=== PATIENT | female | born 1950 | race Caucasian/White ===

== ENCOUNTER 2017-09-03 08:47 | Day surgery (SDC) | payer OTHER ==
[~2017-09-03] VITALS: Ht 170.2 cm; Wt 81.7 kg
[~2017-09-03 08:47] MED LIST: ALBU.083IS; ALBU.083IS IH; ALBU90OI61 INH; BUTONI; CEPH500 PO; CYCL10 PO; FLUSAL2505; FLUSAL2505 IH; HEART BURN MED; HYDACE10B PO; HYDACE5 PO; INDERAL; LEVFLO500 PO; LEVSOD100; LEVSOD137 PO; LEVSOD150; LOVA20 PO; METCAR500 PO; MONT10T; MONT10T PO; NAPR550 PO; Norco 5-325 Ta1 EACH PO; OMEP20ER; OMEP20ER PO; OXYACE5T PO; PHENA200 PO; PRED20 PO; PRIM50 PO; PROP60; RANI150 PO; SULTRIDS PO; TESTOSTERONE CREAM
== END 2017-09-03 10:50 | disposition home or self-care (01) ==
LOC: ORSCSDS 08:47
PROVIDERS: Internal Medicine Gastroenterology
PROC: 0DBL8ZX Excision of Transverse Colon, Via Natural or Artificial Opening Endoscopic, Diagnostic (ICD-10-PCS; principal; 2017-09-03 10:15)
PROC: 0DBP8ZX Excision of Rectum, Via Natural or Artificial Opening Endoscopic, Diagnostic (ICD-10-PCS; principal; 2017-09-03 10:15)
PROC: 0DBM8ZX Excision of Descending Colon, Via Natural or Artificial Opening Endoscopic, Diagnostic (ICD-10-PCS; principal; 2017-09-03 10:15)
DX: Z12.11 Encounter for screening for malignant neoplasm of colon (principal); D12.3 Benign neoplasm of transverse colon; K63.5 Polyp of colon; K62.1 Rectal polyp; K64.4 Residual hemorrhoidal skin tags; K64.8 Other hemorrhoids; Z86.010 Personal history of colon polyps; J44.9 Chronic obstructive pulmonary disease, unspecified; G47.30 Sleep apnea, unspecified; I10 Essential (primary) hypertension; E03.9 Hypothyroidism, unspecified; E78.5 Hyperlipidemia, unspecified; I35.0 Nonrheumatic aortic (valve) stenosis; Z79.82 Long term (current) use of aspirin; F17.210 Nicotine dependence, cigarettes, uncomplicated; Z79.899 Other long term (current) drug therapy
CPT/HCPCS: 88305; J2250; J7120

== ENCOUNTER 2021-06-06 06:38 | Day surgery (SDC) | payer MEDICARE ==
[~2021-06-06] VITALS: Ht 172.7 cm; Wt 66.0 kg
[~2021-06-06 06:38] MED LIST changes: +ALEN70 PO; +ASPI325 PO; +CALCIUM CIT 311 EAC7 PO; +FAMO20 PO; -FLUSAL2505 IH; +FLUT1DIS5 INH; +LEVSOD150 PO; +Ranitidine HCl150 M1 PO; +Ventolin5 MG/1 ML INH; +Vitamin B Comple1 EA PO
--- NOTE | 2021-06-06 10:43 | NUR ---
1015 PATIENT UP TO THE RESTROOM, OFF THE MONITOR, ALLOWED TO DRESS. RESTING IN THE RECLINER.
--- NOTE | 2021-06-06 11:26 | NUR ---
TR BAND FLAT AT 1115 AND PIV REMOVED PER PATIENT REQUEST. CATH TIP INTACT AND PRESSURE DRESSING APPLIED.
--- NOTE | 2021-06-06 11:40 | NUR ---
TR BAND SITE CDI, NO HEMATOMA, NO BLEEDING, WHITE BOARD IN PLACE AND PATIENT UP WALKING IN THE HALLS. NO PAIN NOTED. RIDE WILL NOT ARRIVE UNTIL 2 PM. PATIENT COULD DISCAHRGE AT THIS POINT BUT WAITING ON RIDE. REVIEWED DISCHARGE INSTRUCTIONS WITH THE PATIENT. NO FURTHER QUESTIONS FROM THE PAITENT. TR BAND REMOVED AND SITE CLEANED. CLOTH DOT PLACED AND WHITE BOARF REPLACED TO REMIND PATIENT NOT TO BEND EXCESSIVELY OR PUSH /PULL WITH THAT RIGHT WRIST.
--- NOTE | 2021-06-06 12:10 | NUR ---
PATIENT IS WAITING IN THE [place] FOR HER DAUGHTER. DISCHARGED WITH INSTRUCTIONS. ALL HER BELONGINGS WITH HER.
== END 2021-06-06 12:00 | disposition home or self-care (01) ==
LOC: MHTC 06:38
DX: I35.0 Nonrheumatic aortic (valve) stenosis (principal); E78.5 Hyperlipidemia, unspecified; J44.9 Chronic obstructive pulmonary disease, unspecified; I25.10 Atherosclerotic heart disease of native coronary artery without angina pectoris; F17.210 Nicotine dependence, cigarettes, uncomplicated; I10 Essential (primary) hypertension; Z88.5 Allergy status to narcotic agent
CPT/HCPCS: 76937; 93454; 99152; 99153; C1769; C1894; J1644; J2250; J3010; J7030; Q9967

== ENCOUNTER 2021-08-05 06:40 | Day surgery (SDC) | payer OTHER ==
[~2021-08-05] VITALS: Ht 172.7 cm; Wt 71.5 kg
[2021-08-05] MEDS ORDERED: TRELEGY ELLIPT1 EACH INH (08:10)
[2021-08-05] MEDS ORDERED: Chantix1 MG PO (08:25)
[2021-08-05] MEDS ORDERED: PROZAC20 M2 PO (08:26)
--- NOTE | 2021-08-05 08:30 | NUR ---
History, Chart, Medications and Allergies reviewed before start of procedure. Patient confirms NPO status and agrees with scheduled surgery. Patient States Post-Procedure ride home has been arranged with her sister.
--- NOTE | 2021-08-05 10:34 | NUR ---
RECEIVED REPORT FROM OSEAS REDDY RN. PT SITTING UP IN BED, TOLERATING PO FLUIDS. ABLE TO REPOSITION SELF IN BED. VISITING WITH SISTER AT BEDSIDE, REQUESTING TO GO HOME. PT HAS TWO INCISION SITES, ONE ON RIGHT NECK AND ONE AT ACCESS PORT ON R CHEST. INCISION SITES ARE COVERED WITH GAUZE AND CLEAR TAPE. NO DRAINAGE, SWELLING, INFLAMMATION NOTED.
--- NOTE | 2021-08-05 10:57 | NUR ---
Patient up to Ambulate independently. Gait steady. Discharge instructions reviewed with patient. Patient verbalizes understanding. Copy given to patient to take home. Patient States Post-Procedure ride home has been arranged. Discharged via wheelchair to private car for ride home. Dressings to procedure site clean, dry, intact with no visible drainage, swelling, erythema or bruising noted. ALL BELONGINGS RETURNED TO PATIENT THAT SHE CAME TO STEP DOWN UNIT WITH.
--- NOTE | 2021-08-06 16:01 | NUR ---
08/06/21 1601 Alexia Colin VERIFICATIONS, AUDITS.
== END 2021-08-05 23:56 | disposition home or self-care (01) ==
LOC: ORSCMMR 06:40 → ORD 08:30 → ORSCMMR 08:30
PROVIDERS: Surgery
PROC: 05HM33Z Insertion of Infusion Device into Right Internal Jugular Vein, Percutaneous Approach (ICD-10-PCS; principal; 2021-08-05 08:30)
PROC: B543ZZA Ultrasonography of Right Jugular Veins, Guidance (ICD-10-PCS; principal; 2021-08-05 08:30)
DX: C34.12 Malignant neoplasm of upper lobe, left bronchus or lung (principal); I10 Essential (primary) hypertension; I25.2 Old myocardial infarction; G47.33 Obstructive sleep apnea (adult) (pediatric); J44.9 Chronic obstructive pulmonary disease, unspecified; F17.210 Nicotine dependence, cigarettes, uncomplicated; E03.9 Hypothyroidism, unspecified; E78.5 Hyperlipidemia, unspecified; K21.9 Gastro-esophageal reflux disease without esophagitis; F41.8 Other specified anxiety disorders; Z79.82 Long term (current) use of aspirin; Z79.899 Other long term (current) drug therapy
CPT/HCPCS: 77001; C1788; J0690; J1100; J1642; J2250; J2370; J2405; J2704; J3010; J7120

== ENCOUNTER → 2021-12-24 | Outpatient (CLI) | payer OTHER ==
[~2021-12-24] MED LIST changes: +Chantix1 MG PO; +PROZAC20 M2 PO; +TRELEGY ELLIPT1 EACH INH
== END | disposition home or self-care (01) ==
LOC: PLD 14:48 → LAB SHORT 14:48
DX: L30.8 Other specified dermatitis (principal)
CPT/HCPCS: 88305; 88312

== ENCOUNTER 2022-03-01 12:40 | Emergency (ER) | payer OTHER ==
[~2022-03-01] VITALS: Ht 172.7 cm; Wt 77.1 kg
[2022-03-01 13:33] LABS: BASOPHILS ABSOLUTE AUTO 0.06 K/mm3 (0.00-0.23); BASOPHILS PERCENT AUTO 1 % (0-2); EOSINOPHILS ABSOLUTE AUTO 0.18 K/mm3 (0.00-0.68); EOSINOPHILS PERCENT AUTO 2 % (0-6); Hematocrit 42.2 % (33.0-51.0); IMMATURE GRAN ABSOLUTE AUTO 0.02 K/mm3 (0.00-0.10); IMMATURE GRAN PERCENT AUTO 0 % (0-1); LYMPHOCYTES ABSOLUTE AUTO 2.49 K/mm3 (0.84-5.20); LYMPHOCYTES PERCENT AUTO 30 % (21-46); MONOCYTES ABSOLUTE AUTO 1.18 K/mm3 (0.16-1.47); MONOCYTES PERCENT AUTO 14 % (4-13); Mean Corpuscular HGB 28.9 pg (26.0-34.0); Mean Corpuscular HGB Conc 33.2 g/dL (31.5-36.5); Mean Corpuscular Volume 87 fL (80-100); Mean Platelet Volume 10.7 fL (9.1-12.4); NEUTROPHILS ABSOLUTE AUTO 4.48 K/mm3 (1.96-9.15); NEUTROPHILS PERCENT AUTO 53 % (41-73); Platelet Count 146 K/mm3 (150-400); RDW Coefficient Variation 13.9 % (11.7-14.2); RDW Standard Deviation 44.5 fL (35.1-46.3); Red Blood Cell Count 4.85 M/mm3 (3.80-5.20); White Blood Cell Count 8.41 K/mm3 (4.00-11.30)
[2022-03-01 13:40] LABS: Albumin, Blood 3.4 g/dL (3.4-5.0); Albumin/Globulin Ratio 0.9 (0.8-1.8); Bilirubin, Total 0.2 mg/dL (0.1-1.0); Bun/Creatinine Ratio 17.6 (12.0-20.0); Calcium, Blood 8.8 mg/dL (8.5-10.1); Creatinine, Blood 0.57 mg/dL (0.40-1.00); Globulin, Blood 3.9 g/dL (2.2-4.0); Total Protein, Blood 7.3 g/dL (6.4-8.2)
== END 2022-03-01 15:21 | disposition home or self-care (01) ==
LOC: ER 12:40
PROVIDERS: Student in an Organized Health Care Education/Training Program
DX: R60.0 Localized edema (principal); J44.9 Chronic obstructive pulmonary disease, unspecified; G43.909 Migraine, unspecified, not intractable, without status migrainosus; E03.9 Hypothyroidism, unspecified; F17.200 Nicotine dependence, unspecified, uncomplicated; Z79.899 Other long term (current) drug therapy; Z79.82 Long term (current) use of aspirin
CPT/HCPCS: 36415; 80053; 83880; 84484; 85025; 93005; 93010; 99283-25

== ENCOUNTER → 2022-05-25 | Outpatient (CLI) | payer OTHER ==
[2022-05-25 13:09] LABS: BASOPHILS ABSOLUTE AUTO 0.03 K/mm3 (0.00-0.23); BASOPHILS PERCENT AUTO 0 % (0-2); EOSINOPHILS ABSOLUTE AUTO 0.02 K/mm3 (0.00-0.68); EOSINOPHILS PERCENT AUTO 0 % (0-6); Hematocrit 36.2 % (33.0-51.0); Hemoglobin 12.3 g/dL (11.5-16.0); IMMATURE GRAN ABSOLUTE AUTO 0.05 K/mm3 (0.00-0.10); IMMATURE GRAN PERCENT AUTO 1 % (0-1); LYMPHOCYTES ABSOLUTE AUTO 2.62 K/mm3 (0.84-5.20); LYMPHOCYTES PERCENT AUTO 38 % (21-46); MONOCYTES ABSOLUTE AUTO 1.01 K/mm3 (0.16-1.47); MONOCYTES PERCENT AUTO 15 % (4-13); Mean Corpuscular HGB 30.1 pg (26.0-34.0); Mean Corpuscular Volume 89 fL (80-100); Mean Platelet Volume 10.4 fL (9.1-12.4); NEUTROPHILS ABSOLUTE AUTO 3.17 K/mm3 (1.96-9.15); NEUTROPHILS PERCENT AUTO 46 % (41-73); Platelet Count 323 K/mm3 (150-400); RDW Coefficient Variation 13.6 % (11.7-14.2); RDW Standard Deviation 42.6 fL (35.1-46.3); Red Blood Cell Count 4.09 M/mm3 (3.80-5.20)
[2022-05-25 13:26] LABS: Albumin, Blood 3.2 g/dL (3.4-5.0); Albumin/Globulin Ratio 0.8 (0.8-1.8); Bilirubin, Total 0.1 mg/dL (0.1-1.0); Calcium, Blood 8.5 mg/dL (8.5-10.1); Creatinine, Blood 0.5 mg/dL (0.40-1.00); Globulin, Blood 3.8 g/dL (2.2-4.0); Potassium, Blood 3.6 mmol/L (3.5-5.5)
== END | disposition home or self-care (01) ==
LOC: LAB SHORT 12:37 → LAB 12:37
PROVIDERS: Internal Medicine Hematology & Oncology
DX: C34.90 Malignant neoplasm of unspecified part of unspecified bronchus or lung (principal)
CPT/HCPCS: 80053; 85025

== ENCOUNTER → 2022-06-24 | Outpatient (CLI) | payer OTHER | LOC: LAB 15:12 → LAB SHORT 15:12 → PLD 15:12 | DX: D48.5 Neoplasm of uncertain behavior of skin (principal) | CPT/HCPCS: 88304; 88305; 88342 ==

== ENCOUNTER → 2023-01-18 | Outpatient (CLI) | payer OTHER | LOC: LAB SHORT 09:02 → PLD 09:02 → LAB 09:02 | DX: D48.5 Neoplasm of uncertain behavior of skin (principal); L82.1 Other seborrheic keratosis | CPT/HCPCS: 88305 ==

== ENCOUNTER → 2023-03-02 | Outpatient (CLI) | payer OTHER ==
[2023-03-02 17:56] LABS: BASOPHILS ABSOLUTE AUTO 0.04 K/mm3 (0.00-0.23); BASOPHILS PERCENT AUTO 0 % (0-2); EOSINOPHILS PERCENT AUTO 0 % (0-6); Hematocrit 43.9 % (33.0-51.0); Hemoglobin 15.4 g/dL (11.5-16.0); IMMATURE GRAN ABSOLUTE AUTO 0.14 K/mm3 (0.00-0.10); IMMATURE GRAN PERCENT AUTO 1 % (0-1); LYMPHOCYTES ABSOLUTE AUTO 1.03 K/mm3 (0.84-5.20); LYMPHOCYTES PERCENT AUTO 9 % (21-46); MONOCYTES ABSOLUTE AUTO 0.77 K/mm3 (0.16-1.47); MONOCYTES PERCENT AUTO 7 % (4-13); Mean Corpuscular HGB 31.7 pg (26.0-34.0); Mean Corpuscular HGB Conc 35.1 g/dL (31.5-36.5); Mean Corpuscular Volume 90 fL (80-100); Mean Platelet Volume 12.2 fL (9.1-12.4); NEUTROPHILS ABSOLUTE AUTO 9.01 K/mm3 (1.96-9.15); NEUTROPHILS PERCENT AUTO 82 % (41-73); Platelet Count 115 K/mm3 (150-400); RDW Coefficient Variation 17.1 % (11.7-14.2); RDW Standard Deviation 55.8 fL (35.1-46.3); Red Blood Cell Count 4.86 M/mm3 (3.80-5.20); White Blood Cell Count 10.99 K/mm3 (4.00-11.30)
[2023-03-02 18:19] LABS: Albumin, Blood 2.9 g/dL (3.4-5.0); Albumin/Globulin Ratio 0.7 (0.8-1.8); Bilirubin, Total 4.4 mg/dL (0.1-1.0); Bun/Creatinine Ratio 23.3 (12.0-20.0); Calcium, Blood 11.1 mg/dL (8.5-10.1); Creatinine, Blood 0.73 mg/dL (0.40-1.00); Potassium, Blood 4.1 mmol/L (3.5-5.5); Total Protein, Blood 6.9 g/dL (6.4-8.2)
== END ==
LOC: LAB SHORT 16:16 → LAB 16:16
PROVIDERS: Internal Medicine Hematology & Oncology
DX: C34.12 Malignant neoplasm of upper lobe, left bronchus or lung (principal)
CPT/HCPCS: 80053; 85025